=== PATIENT | female | born 1990 | race Caucasian/White ===

== ENCOUNTER 2017-05-28 19:48 | Emergency (ER) | payer BC, OTHER ==
[~2017-05-28] VITALS: Ht 160 cm; Wt 44.0 kg
[~2017-05-28 19:48] MED LIST: CEPH-443 PO; PHEN-538 PO
[2017-05-28 20:11] VITALS: Ht 160 cm; Wt 44.0 kg
--- NOTE | 2017-05-28 21:34 | ERD ---
ER Documentation Chief Complaint Chief Complaint painful urination since sunday HPI 26-year-old female who presents emergency department for dysuria since Sunday. Last menstrual period: 05/20/2017. A0. Did she took Monistat and azole with no relief Denies headache, dizziness, blurred vision, neck pain, shoulder pain, chest pain, back pain, abdominal pain, nausea, vomiting, constipation, diarrhea, hematuria, vaginal bleeding, vaginal discharge, being sexually active , recent exposure to any illness, recent long travel, recent antibiotic use in the last 3 months, fever, chills. ROS All systems reviewed and are negative except as per history of present illness. Medications Home Meds Active Scripts Phenazopyridine Hcl* (Pyridium*) 200 Mg Tab, 200 MG PO TID Y for URINARY PAIN, # 6 TAB Prov:PASILABANELVINAR F 05/28/17 Acetaminophen* (Tylophen*) 500 Mg Capsule, 1 CAP PO Q6H Y for PAIN AND OR ELEVATED TEMP, #20 CAP Prov:ARTUROILABANRON F 05/28/17 Ibuprofen* (Motrin*) 800 Mg Tab, 800 MG PO Q8 Y for PAIN AND OR ELEVATED TEMP, # 30 TAB Prov:PASILABANELVINAR F 05/28/17 Sulfamethoxazole/Trimethoprim* (Bactrim Ds* Tablet) 1 Each Tablet, 1 TAB PO BID for 7 Days, #14 TAB Prov:ARTUROILABANELVINAR F 05/28/17 Phenazopyridine Hcl* (Pyridium*) 200 Mg Tab, 200 MG PO TID Y for URINARY PAIN, # 6 TAB Prov:SARAH BALLESTEROS PA-C 03/31/16 Cephalexin* (Keflex*) 500 Mg Capsule, 500 MG PO QID for 7 Days, CAP Prov:SARAH BALLESTEROS PA-C 03/31/16 Allergies Allergies: Coded Allergies: No Known Allergy (Unverified , 03/31/16) PMhx/Soc Medical and Surgical Hx: pt denies Medical Hx, pt denies Surgical Hx Hx Alcohol Use: No Hx Substance Use: No Hx Tobacco Use: No Smoking Status: Never smoker Physical Exam Vitals Vital Signs Date Time Temp Pulse Resp B/P Pulse Ox O2 Delivery O2 Flow Rate FiO2 05/29/17 00:04 98.7 65 18 109/76 98 Room Air 05/28/17 20:11 97.9 70 20 111/77 94 Physical Exam Const: Well-appearing. No acute distress. Head: Atraumatic Eyes: Normal Conjunctiva ENT: Normal External Ears, Nose and Mouth. Neck: Full range of motion..~ No meningismus. Resp: Clear to auscultation bilaterally Cardio: Regular rate and rhythm, no murmurs Abd: Soft, non tender, non distended. Normal bowel sounds. Has suprapubic tenderness to palpation. Skin: No petechiae or rashes Back: No midline or flank tenderness. No CVA tenderness.. Ext: No cyanosis, or edema Neur: Awake and alert Psych: Normal Mood and Affect Results 24 hrs Laboratory Tests Test 05/28/17 21:00 05/28/17 21:42 Urine Color VAN Urine Clarity CLEAR Urine pH 7.0 Urine Specific [place] 1.012 Urine Ketones TRACEmg/dL Urine Nitrite POSITIVEmg/dL Urine Bilirubin NEGATIVEmg/dL Urine Urobilinogen 2+mg/dL Urine Leukocyte Esterase 1+Leodan/ul Urine Microscopic RBC 0/HPF Urine Microscopic WBC 21/HPF Urine Bacteria FEW/HPF Urine Mucus FEW/HPF Urine Hemoglobin NEGATIVEmg/dL Urine Glucose NEGATIVEmg/dL Urine Total Protein NEGATIVEmg/dl Urine Test NEGATIVE Bedside Urine pH (LAB) 7.0 Bedside Urine Protein (LAB) 2+ Bedside Urine Glucose (UA) 0.25% Bedside Urine Ketones (LAB) Trace Bedside Urine Blood Negative Bedside Urine Nitrite (LAB) Positive Bedside Urine Leukocyte Esterase (L 3+ Current Medications Medications (Trade) Dose Ordered Sig/Nahun Route PRN Reason Start Time Stop Time Status Last Admin Dose Admin Lactated Ringer's (Lr) 1,000 ml @ 1,000 mls/hr Q1H ONCE IV 05/28/17 22:30 05/28/17 23:29 Cancel Ondansetron HCl (Zofran Inj) 4 mg ONCE STAT IV 05/28/17 22:24 05/28/17 22:25 Cancel Ketorolac Tromethamine (Toradol) 60 mg ONCE STAT IM 05/28/17 23:13 05/28/17 23:14 DC 05/28/17 23:30 Trimethoprim/ Sulfamethoxazole (Bactrim (Ds)) 1 tab ONCE ONCE PO 05/29/17 00:00 05/29/17 00:01 DC 05/28/17 23:53 Phenazopyridine HCl (Pyridium) 200 mg ONCE ONCE PO 05/29/17 00:00 05/29/17 00:01 DC Procedures/MDM Urinalysis: UTI. Urine hCG: Negative. I have low suspicion for pyelonephritis, kidney stone, acute abdomen due to patient's physical exam that revealed no CVA tenderness. No lower abdominal tenderness. Negative on Rovsing's sign. Negative on Momo sign. Negative on psoas sign. Able to jump 5 times without developing abdominal pain. Treatment: Toradol IM. Bactrim. Pyridium. Reevaluation: Denies abdominal pain. No abdominal tenderness. No signs of peritoneal irritation. No CVA tenderness. No episode of emesis here in the emergency department. Final diagnosis: UTI. Prescription: Bactrim. Motrin. Tylenol. Follow-up with PCP in the next 24-48 hours. Come back here in the emergency department for any new symptoms or any worsening symptoms. All questions and concerns are answered. Patient verbalized understanding and agreed with the plan of care. Hemodynamically stable on discharge. Departure Diagnosis: Primary Impression: UTI (urinary tract infection) Condition: Stable Additional Instructions: Follow-up with PCP in the next 24-48 hours. Come back here in the emergency department for any new symptoms or any worsening symptoms. All questions and concerns are answered. Patient verbalized understanding and agreed with the plan of care. RON DARNELL May 28, 2017 21:34
[2017-05-28 21:43] LABS: URINE BLOOD (Dip) POC Negative (NEGATIVE)
[2017-05-28] MEDS ORDERED: ONDANSETRON 4 MG INJ IV STA (22:24)
[2017-05-28] MEDS ORDERED: LACTATED RINGER'S 1,000 ML IV ONE (22:30)
[2017-05-28 23:07] LABS: ADD UMIC YES; UR ASCORBIC ACID NEGATIVE (NEGATIVE); UR BACTERIA FEW /HPF (NONE SEEN); UR BILIRUBIN (Dip) NEGATIVE (NEGATIVE); UR BLOOD (Dip) NEGATIVE (NEGATIVE); UR CLARITY CLEAR (CLEAR); UR COLOR AMBER (YELLOW); UR GLUCOSE (Dip) NEGATIVE (NEGATIVE); UR KETONES (Dip) TRACE mg/dL (NEGATIVE); UR LEUKOCYTE ESTERASE (Dip) 1+ Leu/ul (NEGATIVE); UR MUCUS FEW /HPF (NONE SEEN); UR NITRITE (Dip) POSITIVE (NEGATIVE); UR RBC 0 /HPF (0-5); UR SPECIFIC GRAVITY (Dip) 1.012 (1.003-1.030); UR TOTAL PROTEIN (Dip) NEGATIVE (NEGATIVE); UR UROBILINOGEN (Dip) 2+ mg/dL (NEGATIVE)
[2017-05-28] MEDS ORDERED: KETOROLAC 60 MG INJ IM STA (23:13)
[2017-05-28] MEDS ORDERED: SULF1TAB31 PO (23:27)
[2017-05-28] MEDS ORDERED: IBUP800T25 PO (23:28)
[2017-05-28] MEDS ORDERED: ACET500C5 PO (23:28)
[2017-05-28] MEDS ORDERED: PHEN-538 PO (23:30)
[2017-05-29] MEDS ORDERED: PHENAZOPYRIDINE 100 MG TAB PO ONE
[2017-05-29] MEDS ORDERED: TRIMETHOPRIM/SULFAMETHOX (DS) TAB PO ONE
[2017-05-29 00:04] VITALS: BP 109/76; PULSE 65; RESP 18; TEMP 98.7
== END 2017-05-29 00:05 | disposition home or self-care (01) ==
LOC: FTE 19:48
DX: N39.0 Urinary tract infection, site not specified (principal)
CPT/HCPCS: 81001; 84703; 87086; 96372; J1885; Z7502; Z7610; 81003; J7120

== ENCOUNTER 2017-10-13 10:08 | Emergency (ER) | END 2017-10-13 12:48 | disposition home or self-care (01) ==